=== PATIENT | male | born 1950 | race Caucasian/White ===

== ENCOUNTER 2024-11-12 06:48 | Day surgery (SDC) | payer MEDICARE ==
[~2024-11-12 06:48] MED LIST: LIDOCAINE 1% (10MG/ML) FOR IV START INTRADERMA PRN
[2024-11-12 07:14] VITALS: TEMP 97.6
[2024-11-12] MEDS: LACTATED RINGERS 1,000 ML IV SCH (07:20)
[2024-11-12] MEDS: IV FLUID CONTINUATION 1,000 ML IV ONE (07:21)
[2024-11-12] MEDS ORDERED: PROPOFOL 10 MG/ML 20 ML VIAL IV ONE (07:59)
[2024-11-12] MEDS ORDERED: LIDOCAINE 1% INJ 10MG/ML (20 ML MDV) ONE (07:59)
--- NOTE | 2024-11-12 08:03 | P.GSHP ---
History of Present Illness H&P Date: 11/12/24 Chief Complaint: GERD, screening 74-year-old male here for upper and lower endoscopy. Patient with chronic reflux. Symptoms well-controlled with omeprazole. Patient has history of a unresectable omeprazole. Patient has history of a unresectable Past Medical History Past Medical History: Blood Disorder, CVA/TIA, GERD/Reflux, Hyperlipidemia, Hypertension, Osteoarthritis (OA), Pulmonary Embolus (PE) Additional Past Medical History / Comment(s): hx. colon polyps, hx. Factor 5, TIA 2010-no residual effects, hx. PE years ago, neck pain History of Any Multi-Drug Resistant Organisms: None Reported Past Surgical History: Appendectomy, Bowel Resection, Heart Catheterization With Stent Additional Past Surgical History / Comment(s): surg. for sleep apnea, pain procedures, colonoscopies Past Anesthesia/Blood Transfusion Reactions: No Reported Reaction Date of Last Stent Placement:: 1996 Smoking Status: Former smoker Medications and Allergies Home Medications Medication Instructions Recorded Confirmed Type Atorvastatin [Lipitor] 40 mg PO HS 11/08/24 11/08/24 History Folic Acid 5 tab PO HS 11/08/24 11/08/24 History Losartan/Hydrochlorothiazide 1 tab PO HS 11/08/24 11/08/24 History [Losartan-Hctz 100-25 mg Tab] Metoprolol Succinate (ER) [Toprol 25 mg PO HS 11/08/24 11/08/24 History Xl] Omeprazole 40 mg PO HS 11/08/24 11/08/24 History Rivaroxaban [Xarelto] 20 mg PO HS 11/08/24 11/08/24 History Zolpidem [Ambien] 10 mg PO HS PRN 11/08/24 11/08/24 History Allergies Allergy/AdvReac Type Severity Reaction Status Date / Time No Known Allergies Allergy Verified 11/12/24 07:07 Surgical - Exam Vital Signs Temp Pulse Resp BP Pulse Ox 97.6 F 81 16 126/71 98 11/12/24 07:10 11/12/24 07:10 11/12/24 07:10 11/12/24 07:10 11/12/24 07:10 Physical exam: General: Well-developed, well-nourished HEENT: Normocephalic, sclerae nonicteric Abdomen: Nontender, nondistended Extremities: No edema Neuro: Alert and oriented Assessment and Plan (1) Colon cancer screening Narrative/Plan: Will proceed with upper and lower endoscopy Current Visit: Yes Status: Acute Code(s): Z12.11 - ENCOUNTER FOR SCREENING FOR MALIGNANT NEOPLASM OF COLON SNOMED Code(s): 182572794
--- NOTE | 2024-11-12 08:17 | P.PCN ---
Date of Procedure: 11/12/24 Procedure(s) Performed: PREOPERATIVE DIAGNOSIS: GERD, screening, history of unresectable polyp POSTOPERATIVE DIAGNOSIS: Gastritis, small hiatal hernia, diverticulosis PROCEDURE: 1. EGD with biopsy 2. Colonoscopy ANESTHESIA: MAC SURGEON: Ash Monroy M.D. SPECIMENS: Antrum ENDOSCOPIC PROCEDURE: The patient was on the endoscopy table in the left decubitus position. The Olympus gastroscope was inserted into the oropharynx and passed under direct visualization to the region of the third portion of the duodenum. From that point the scope was slowly withdrawn inspecting all surfaces carefully. There were no neoplastic inflammatory or polypoid lesions throughout the duodenum. The pylorus was widely patent. The stomach was carefully inspected. There was mild gastritis present. A biopsy of the antrum took place to rule out H. pylori. Retroflexion revealed a small hiatal hernia. The GE junction was present 1 to 2 cm above the diaphragm. There remainder the esophagus appeared normal. The patient was kept on the endoscopy table in the left decubitus position. The Olympus colonoscope was inserted into the anus and passed under direct visualization to the ileocolonic anastomosis. From that point the scope was slowly withdrawn inspecting all surfaces carefully. There were no neoplastic inflammatory or polypoid lesions throughout the transverse, descending, sigmoid and rectum. There was mild scattered diverticulosis noted. Digital rectal examination was normal. The patient was taken to the recovery room in stable condition per anesthesia guidelines. RECOMMENDATIONS: Resume diet. Continue antiacid therapy. Repeat colonoscopy 5 years.
[2024-11-12 08:40] VITALS: BP 121/58; PULSE 61; RESP 16
== END 2024-11-12 09:14 | disposition home or self-care (01) ==
LOC: ORWHC2ENDO 06:48
PROVIDERS: ATTEND Surgery
DX: Z12.11 Encounter for screening for malignant neoplasm of colon (principal); K57.30 Diverticulosis of large intestine without perforation or abscess without bleeding; K29.70 Gastritis, unspecified, without bleeding; K31.89 Other diseases of stomach and duodenum; K21.9 Gastro-esophageal reflux disease without esophagitis; K44.9 Diaphragmatic hernia without obstruction or gangrene; I10 Essential (primary) hypertension; E78.5 Hyperlipidemia, unspecified; D68.51 Activated protein C resistance; Z79.01 Long term (current) use of anticoagulants; Z79.899 Other long term (current) drug therapy; Z87.891 Personal history of nicotine dependence; Z86.0100 Personal history of colon polyps, unspecified; Z86.73 Personal history of transient ischemic attack (TIA), and cerebral infarction without residual deficits; Z86.711 Personal history of pulmonary embolism; Z90.49 Acquired absence of other specified parts of digestive tract
CPT/HCPCS: 45378; 43239; J2003; J2704; 88305